=== PATIENT | female | born 1950 ===

== ENCOUNTER 2017-06-02 08:14 | Day surgery (SDC) | payer MEDICARE, OTHER ==
[~2017-06-02] VITALS: Ht 162.6 cm; Wt 73.5 kg
[~2017-06-02 08:14] MED LIST: CELE100; CLOB.05TO; CONEST.625 PO; METO100ER PO; NEBI10 PO
== END 2017-06-02 11:17 | disposition home or self-care (01) ==
LOC: ORSCSDS 08:14
PROVIDERS: Internal Medicine Gastroenterology
PROC: 0DBM8ZX Excision of Descending Colon, Via Natural or Artificial Opening Endoscopic, Diagnostic (ICD-10-PCS; principal; 2017-06-02 09:45)
PROC: 0DBN8ZX Excision of Sigmoid Colon, Via Natural or Artificial Opening Endoscopic, Diagnostic (ICD-10-PCS; principal; 2017-06-02 09:45)
DX: Z12.11 Encounter for screening for malignant neoplasm of colon (principal); D12.4 Benign neoplasm of descending colon; K63.5 Polyp of colon; K57.30 Diverticulosis of large intestine without perforation or abscess without bleeding; I10 Essential (primary) hypertension; Z79.899 Other long term (current) drug therapy
CPT/HCPCS: 88305; J3010

== ENCOUNTER 2018-01-28 21:24 | Emergency (ER) | payer MEDICARE, OTHER ==
[~2018-01-28] VITALS: Ht 162.6 cm; Wt 65.8 kg
[2018-01-28 21:39] LABS: BASOPHILS ABSOLUTE AUTO 0.08 K/mm3 (0.00-0.23); BASOPHILS PERCENT AUTO 1 % (0-2); EOSINOPHILS ABSOLUTE AUTO 0.79 K/mm3 (0.00-0.68); EOSINOPHILS PERCENT AUTO 8 % (0-6); Hemoglobin 13.1 g/dL (11.5-16.0); IMMATURE GRAN ABSOLUTE AUTO 0.03 K/mm3 (0.00-0.10); IMMATURE GRAN PERCENT AUTO 0 % (0-1); LYMPHOCYTES ABSOLUTE AUTO 2.87 K/mm3 (0.84-5.20); LYMPHOCYTES PERCENT AUTO 29 % (21-46); MONOCYTES ABSOLUTE AUTO 0.87 K/mm3 (0.16-1.47); MONOCYTES PERCENT AUTO 9 % (4-13); Mean Corpuscular HGB 29.4 pg (26.0-34.0); Mean Corpuscular HGB Conc 33.6 g/dL (31.5-36.5); Mean Corpuscular Volume 88 fL (80-100); Mean Platelet Volume 10.6 fL (9.1-12.4); NEUTROPHILS ABSOLUTE AUTO 5.32 K/mm3 (1.96-9.15); NEUTROPHILS PERCENT AUTO 54 % (41-73); Platelet Count 248 K/mm3 (150-400); RDW Standard Deviation 41.7 fL (35.1-46.3); Red Blood Cell Count 4.45 M/mm3 (3.80-5.20); White Blood Cell Count 9.96 K/mm3 (4.00-11.30)
[2018-01-28] MEDS ORDERED: NAPR500 PO (21:50)
[2018-01-28 22:02] LABS: Alanine Aminotransfer (ALT/SGP 25 U/L (12-78); Albumin, Blood 4.2 g/dL (3.4-5.0); Albumin/Globulin Ratio 1.2 (0.8-1.8); Alk Phos 58 U/L (50-136); Anion Gap 11 mmol/L (6-16); Aspartate Aminotrans (AST/SGOT 21 U/L (12-37); Bilirubin, Total 0.4 mg/dL (0.1-1.0); Blood Urea Nitrogen 22 mg/dL (8-24); Bun/Creatinine Ratio 32.2 (12.0-20.0); CO2, Blood 23 mmol/L (21-32); Calcium, Blood 9.4 mg/dL (8.5-10.1); Chloride, Blood 107 mmol/L (98-108); Creatinine, Blood 0.68 mg/dL (0.40-1.00); Globulin, Blood 3.4 g/dL (2.2-4.0); Glomerular Filtration Rate >60 (60-); Glucose, Blood 104 mg/dL (70-99); Sodium, Blood 141 mmol/L (136-145); Total Protein, Blood 7.6 g/dL (6.4-8.2)
== END 2018-01-28 22:26 | disposition home or self-care (01) ==
LOC: ER 21:24
PROVIDERS: Emergency Medicine
DX: R10.11 Right upper quadrant pain (principal); I10 Essential (primary) hypertension; Z79.899 Other long term (current) drug therapy
CPT/HCPCS: 36415; 76705; 80053; 83690; 85025; 96360; 99284-25; J2405; J7030

== ENCOUNTER 2022-03-01 04:40 | Inpatient (IN) | payer MEDICARE, OTHER ==
[~2022-03-01] VITALS: Ht 160 cm; Wt 63.5 kg
[~2022-03-01 04:40] MED LIST changes: +NAPR500 PO
[2022-03-01] MEDS ORDERED: ALEN70 PO (04:53)
[2022-03-01] MEDS ORDERED: NAPR220 PO (04:53)
[2022-03-01 05:07] LABS: BASOPHILS ABSOLUTE AUTO 0.06 K/mm3 (0.00-0.23); BASOPHILS PERCENT AUTO 1 % (0-2); EOSINOPHILS ABSOLUTE AUTO 0.44 K/mm3 (0.00-0.68); EOSINOPHILS PERCENT AUTO 5 % (0-6); Hematocrit 41.3 % (33.0-51.0); Hemoglobin 13.9 g/dL (11.5-16.0); IMMATURE GRAN ABSOLUTE AUTO 0.03 K/mm3 (0.00-0.10); IMMATURE GRAN PERCENT AUTO 0 % (0-1); LYMPHOCYTES ABSOLUTE AUTO 1.56 K/mm3 (0.84-5.20); LYMPHOCYTES PERCENT AUTO 16 % (21-46); MONOCYTES ABSOLUTE AUTO 0.64 K/mm3 (0.16-1.47); MONOCYTES PERCENT AUTO 7 % (4-13); Mean Corpuscular HGB 30.3 pg (26.0-34.0); Mean Corpuscular HGB Conc 33.7 g/dL (31.5-36.5); Mean Corpuscular Volume 90 fL (80-100); Mean Platelet Volume 10.3 fL (9.1-12.4); NEUTROPHILS PERCENT AUTO 72 % (41-73); Platelet Count 283 K/mm3 (150-400); RDW Coefficient Variation 12.5 % (11.7-14.2); RDW Standard Deviation 41.3 fL (35.1-46.3); Red Blood Cell Count 4.59 M/mm3 (3.80-5.20); White Blood Cell Count 9.83 K/mm3 (4.00-11.30)
[2022-03-01 05:19] LABS: Albumin/Globulin Ratio 1.1 (0.8-1.8); Bilirubin, Total 0.4 mg/dL (0.1-1.0); Bun/Creatinine Ratio 20.2 (12.0-20.0); Calcium, Blood 8.9 mg/dL (8.5-10.1); Creatinine, Blood 0.59 mg/dL (0.40-1.00); Globulin, Blood 3.6 g/dL (2.2-4.0); Magnesium, Blood 1.8 mg/dL (1.6-2.4); Potassium, Blood 3.9 mmol/L (3.5-5.5); Total Protein, Blood 7.6 g/dL (6.4-8.2)
[2022-03-01 07:15] LABS: Source, Urine Clean Catch
[2022-03-01 07:17] LABS: Appearance, Urine Clear (Clear); Bilirubin, Urine Neg (Neg); Blood, Urine 1+ (Neg); Color, Urine Yellow (P-Yellow); Glucose Qualitative, Urine Neg (Neg); Ketones, Urine Neg (Neg); Leukocyte Esterase, Urine Neg (Neg); Nitrite, Urine Neg (Neg); Protein, Urine 1+ (Neg); Specific Gravity, Urine 1.005 (1.003-1.022); Urobilinogen, Urine NORM (Normal)
[2022-03-01 07:28] LABS: Bacteria Not Seen /hpf; Hyaline Casts 0-2 /lpf (0-2); Red Blood Cells, Urine 0-2 /hpf (0-2); Squamous Epithelial Cells Rare /hpf (Few); White Blood Cells, Urine 0-2 /hpf (0-5)
--- NOTE | 2022-03-01 09:17 | NUR ---
PT ARRIVED TO UNIT VIA GURN FROM EMERGENCY ROOM. PT ABLE TO TRANSFER EASILY FROM ER GURN TO DAY SURGERY GURN. VSS. Patient up to Ambulate independently. Gait steady. History, Chart, Medications and Allergies reviewed before start of procedure.
--- NOTE | 2022-03-01 10:59 | NUR ---
03/01/22 1059 Red [facility] 3G [place] STARTED AT 1030 INTRAOPERATIVELY
--- NOTE | 2022-03-01 13:00 | NUR ---
PATIENT CAME FROM PACU TODAY AT 1300. POD 0 RIGHT CARO COLECTOMY PATIENT IS A&OX4 BUT IS DROWSY. SHE IS EASILY AWAKENED WITH TOUCH AND BY SAYING HER NAME. PATIENT REPORTS 10/10 PAIN FROM HER SHOULDERS. DR. URRUTIA IS AWARE AND REPORTED "THAT PAIN WILL BE THERE FOR TWO TO THREE DAYS DUE TO HER DIAPHRAGM BEING DISPLACED". SHE DOES HAVE AN EPIDURAL WITH PROOF COIN COLLECTOR BOLUS DOSE INCLUDED. SHE HAS NUMBNESS FROM THE TOP OF HER ABD AND DOWN THOUGH CAN MOVE HER FINGERS AND TOES WHEN ASKED. EPIDURAL SITE IS C/D/I. SHE HAS A JOSE MIDLINE ON HER ABD THAT HAS A SMALL AMOUNT OF BLOOD THAT IS OUTLINED AND HASN'T CHANGED SINCE IT WAS PLACED PER PACU NURSE BEDSIDE REPORT. PATIENT IS LAYING IN BED. CALL LIGHT WITHIN REACH.
--- NOTE | 2022-03-01 15:16 | NUR ---
SHIFT SUMMARY: POD 0 RIGHT CARO COLECTOMY NO SIGNIFICANT CHANGES SINCE POST OP. SHE IS INTERMITTENTLY SLEEPING BUT IS EASILY AROUSABLE WITH TOUCH/SAYING HER NAME. PATIENT HAS EPIDURAL WITH HAIR SPINNING MACHINE OPERATOR BOLUS BUTTON FOR HER PAIN. SHE REPORTS NUMBNESS FROM HER UMBILICUS DOWN BUT IS ABLE TO MOVE HER FINGERS AND TOES. ABD HAS A MIDLINE JOSE WITH NO NEW DRAINAGE NOTED WITH SUCTION ACHIEVED WITH THE GREEN BLINKING LIGHT FROM MACHINE. ABD IS TENDER TO TOUCH/PALPATATE. SHE IS TOLERATING SMALL SIPS OF FLUIDS. PATIENT IS LAYING IN BED. CALL LIGHT WITHIN REACH.
--- NOTE | 2022-03-01 18:05 | NUR ---
Pt. is awake and welcomes my visit. Pt. is unsettled about the tenderness from her surgery. Listen carefully, and establish rapport. Pt. displays evidence of awareness and engagement. Prayed with Pt. Pt. verbalized gratitude for the spiritual care visit.
--- NOTE | 2022-03-01 23:08 | NUR ---
UPDATE/PHYSICIAN NOTIFIED PT CONT TO REPORT SEVERE PAIN IN SHOULDERS AND ABD. W/O RELIEF FROM TORADOL. DR. NARVAEZ NOTIFIED. PHYSICIAN INSTRUCTED TO GIVE IV MORPHINE W/EPIDURAL CLEAN RICE BROKER. PT NOW RESTING COMFORTABLY. VSS.
[2022-03-02 04:49] LABS: BASOPHILS ABSOLUTE AUTO 0.03 K/mm3 (0.00-0.23); BASOPHILS PERCENT AUTO 0 % (0-2); EOSINOPHILS PERCENT AUTO 0 % (0-6); Hematocrit 29.2 % (33.0-51.0); Hemoglobin 10.1 g/dL (11.5-16.0); IMMATURE GRAN ABSOLUTE AUTO 0.05 K/mm3 (0.00-0.10); IMMATURE GRAN PERCENT AUTO 0 % (0-1); LYMPHOCYTES ABSOLUTE AUTO 1.05 K/mm3 (0.84-5.20); LYMPHOCYTES PERCENT AUTO 8 % (21-46); MONOCYTES ABSOLUTE AUTO 1.07 K/mm3 (0.16-1.47); MONOCYTES PERCENT AUTO 8 % (4-13); Mean Corpuscular HGB 31.1 pg (26.0-34.0); Mean Corpuscular HGB Conc 34.6 g/dL (31.5-36.5); Mean Corpuscular Volume 90 fL (80-100); Mean Platelet Volume 10.5 fL (9.1-12.4); NEUTROPHILS PERCENT AUTO 84 % (41-73); Platelet Count 259 K/mm3 (150-400); RDW Coefficient Variation 12.4 % (11.7-14.2); RDW Standard Deviation 41.1 fL (35.1-46.3); Red Blood Cell Count 3.25 M/mm3 (3.80-5.20)
[2022-03-02 05:01] LABS: Calcium, Blood 7.4 mg/dL (8.5-10.1); Creatinine, Blood 0.72 mg/dL (0.40-1.00); Potassium, Blood 4.2 mmol/L (3.5-5.5)
--- NOTE | 2022-03-02 06:19 | NUR ---
SHIFT SUMMARY PT ALERT AND ORIENTED X 4. HR STABLE. BP STABLE,MAP ABOVE 65. PT REPORTS SEVERE PAIN IN SHOULDERS AND ABD, PHYSICIAN NOTIFIED. ORDERS TO GIVE PRN MORPHINE FOR PAIN. EPIDURAL SECURITY CHECKER,SEE EMAR. PHYSICIAN INSTRUCTED TO ENCOURAGE PT TO USE SECURITY CHECKER NEEDED. WOUND VAC TO ABD, GREEN LIGHT SHOWING WOUND VAC WORKING AT THIS TIME. JOSE DRESSING HAS OUTLINE IN BLACK INK OF DAYSDEFT DRAINAGE 03/01. NO FURTHER DRAINAGE ON DRESSING. ALMONTE DRAINING TO GRAVITY. CALL LIGHT WITHIN REACH. PT RESTING AT THIS TIME. Q1 VITAL SIGNS DONE. WILL CONT TO MONITOR UNTIL REPORT GIVEN TO DAYSHIFT RN.
--- NOTE | 2022-03-02 07:05 | NUR ---
RECVD REPORT FROM PREVIOUS SHIFT RN. PT SLEEPING IN BED, BED IN LOWEST POSITION, BED RAILS UP X 2, CONT BIOXX SHOWING HR 89, SPO2 91% 2L NC. CALL LIGHT WITHIN REACH.
--- NOTE | 2022-03-02 08:00 | NUR ---
DR BRUNO MAIN
--- NOTE | 2022-03-02 08:45 | NUR ---
DR BILLY MIAN
--- NOTE | 2022-03-02 09:45 | NUR ---
DR BRICE MAIN
--- NOTE | 2022-03-02 15:12 | NUR ---
THIS RN STARTED NEW IV IN R HAND 22 GAUGE FOR RN MARIA LUZ
[2022-03-03 03:40] LABS: BASOPHILS ABSOLUTE AUTO 0.04 K/mm3 (0.00-0.23); BASOPHILS PERCENT AUTO 0 % (0-2); EOSINOPHILS ABSOLUTE AUTO 0.12 K/mm3 (0.00-0.68); EOSINOPHILS PERCENT AUTO 1 % (0-6); Hemoglobin 7.4 g/dL (11.5-16.0); IMMATURE GRAN ABSOLUTE AUTO 0.09 K/mm3 (0.00-0.10); IMMATURE GRAN PERCENT AUTO 1 % (0-1); LYMPHOCYTES ABSOLUTE AUTO 1.47 K/mm3 (0.84-5.20); LYMPHOCYTES PERCENT AUTO 12 % (21-46); MONOCYTES ABSOLUTE AUTO 0.71 K/mm3 (0.16-1.47); MONOCYTES PERCENT AUTO 6 % (4-13); Mean Corpuscular HGB 30.7 pg (26.0-34.0); Mean Corpuscular HGB Conc 33.6 g/dL (31.5-36.5); Mean Corpuscular Volume 91 fL (80-100); Mean Platelet Volume 10.4 fL (9.1-12.4); NEUTROPHILS PERCENT AUTO 80 % (41-73); Platelet Count 196 K/mm3 (150-400); RDW Coefficient Variation 12.5 % (11.7-14.2); RDW Standard Deviation 41.9 fL (35.1-46.3); Red Blood Cell Count 2.41 M/mm3 (3.80-5.20); White Blood Cell Count 11.83 K/mm3 (4.00-11.30)
[2022-03-03 04:00] LABS: Bun/Creatinine Ratio 17.4 (12.0-20.0); Calcium, Blood 7.6 mg/dL (8.5-10.1); Creatinine, Blood 0.86 mg/dL (0.40-1.00); Magnesium, Blood 1.9 mg/dL (1.6-2.4); Potassium, Blood 3.8 mmol/L (3.5-5.5)
--- NOTE | 2022-03-03 04:29 | NUR ---
SHIFT SUMMARY POD#2 CARO COLECTOMY W/EPIDURAL PLACEMENT. PATIENT DENIES NT, REPORTS FULL SENSATION THROUGHOUT. PICCO DRESSING TO MIDLINE INCISION, WITH DRIED DRAINAGE, OUTLINED WITH INK. ABD MILDLY DISTENDED, NONTENDER REPORTS NO FLATUS. TOLERATES PO SIPS OF CLEARS. DENIES N/V. PATIENT IS NOW ON 3 L NC, SATS AT 93%. ENCOURAGED DEEP BREATHING, EDUCATED ON INCENTIVE SPIROMETER. ALMONTE PATENT DRAINING YELLOW CLEAR URINE. STAT LOCK IN PLACE. RESTING COMFORTABLY AT THIS TIME, CALL LIGHT IN REACH.
[2022-03-03 08:55] LABS: Hemoglobin 7.5 g/dL (11.5-16.0)
[2022-03-03 12:01] LABS: Hematocrit 22.2 % (33.0-51.0); Hemoglobin 7.4 g/dL (11.5-16.0)
--- NOTE | 2022-03-03 15:59 | NUR ---
SHIFT SUMMARY: POD 2 RIGHT CARO COLECTOMY NO SIGNIFICANT CHANGES. PATIENT IS A&OX4. VS ARE WNL AND IS ON 2L NC. PAIN IS MANAGED WITH HER EPIDURAL WITH ASSISTANT PRODUCTION MANAGER FUNCTION. DENIES NUMBNESS OR TINGLING. PATIENT REPOSITIONS HERSELF IN BED INDEP. SHE IS A SBA TO A CHAIR. JOSE ON MIDLINE OF ABD STILL HAS OLD BROWN BLOOD WITH NO NEW CHANGES. GREEN LIGHT IS BLINKING ON MACHINE INDICATING THERE IS STILL SUCTION BEING APPLIED. SHE IS TOLERATING HER FULL LIQUID DIET. SHE CALLS APPROPRIATELY. CALL LIGHT WITHIN REACH. ALMONTE IS DRAINING LIGHT YELLOW URINE WITH NO KINKS IN TUBING. THE PLAN IS TO POSSIBLY DISCONTINUE THE EPIDURAL TOMORROW AND HER ALMONTE. IF THAT HAPPENS THEN THE GOAL WILL BE TO MANAGE HER PAIN AND INCREASE AMBULATION.
[2022-03-03 17:38] LABS: Hematocrit 23.1 % (33.0-51.0); Hemoglobin 7.8 g/dL (11.5-16.0)
[2022-03-03 23:35] LABS: Hematocrit 22.5 % (33.0-51.0); Hemoglobin 7.8 g/dL (11.5-16.0)
--- NOTE | 2022-03-04 05:20 | NUR ---
SHIFT SUMMARY PT A&OX4, PLEASANT AND COOPERATIVE. PAIN MANAGED WITH EPIDURAL. VVS, CURRENTLY ON 2L NC, BIOX AT BEDSIDE. PT STATES FULL SENSATION, NO NUMBNESS/TINGLING. ABLE TO TRANSFER TO CHAIR WITH SBA. JOSE HAS OLD DRIED BLOOD THAT HAS BEEN OUTLINED, NO INCREASE, GREEN LIGHT ON. PT HAD SOME NAUSEA AROUND 0430 THAT RESULTED IN VOMITING, ZOFRAN GIVEN, SHE FEELS BETTER NOW. ALMONTE IN PLACE AND DRAINING YELLOW/CLEAR. CALLS APPROPRIATELY, CALL LIGHT WITHIN REACH
[2022-03-04 06:03] LABS: BASOPHILS ABSOLUTE AUTO 0.04 K/mm3 (0.00-0.23); BASOPHILS PERCENT AUTO 0 % (0-2); EOSINOPHILS PERCENT AUTO 3 % (0-6); Hematocrit 24.6 % (33.0-51.0); Hemoglobin 8.4 g/dL (11.5-16.0); IMMATURE GRAN ABSOLUTE AUTO 0.04 K/mm3 (0.00-0.10); IMMATURE GRAN PERCENT AUTO 0 % (0-1); LYMPHOCYTES ABSOLUTE AUTO 1.04 K/mm3 (0.84-5.20); LYMPHOCYTES PERCENT AUTO 11 % (21-46); MONOCYTES ABSOLUTE AUTO 0.77 K/mm3 (0.16-1.47); MONOCYTES PERCENT AUTO 8 % (4-13); Mean Corpuscular HGB 31.2 pg (26.0-34.0); Mean Corpuscular HGB Conc 34.1 g/dL (31.5-36.5); Mean Corpuscular Volume 91 fL (80-100); Mean Platelet Volume 10.2 fL (9.1-12.4); NEUTROPHILS ABSOLUTE AUTO 7.17 K/mm3 (1.96-9.15); NEUTROPHILS PERCENT AUTO 77 % (41-73); Platelet Count 242 K/mm3 (150-400); RDW Coefficient Variation 12.6 % (11.7-14.2); RDW Standard Deviation 42.1 fL (35.1-46.3); Red Blood Cell Count 2.69 M/mm3 (3.80-5.20); White Blood Cell Count 9.36 K/mm3 (4.00-11.30)
[2022-03-04 06:37] LABS: Albumin, Blood 2.7 g/dL (3.4-5.0); Albumin/Globulin Ratio 0.8 (0.8-1.8); Bilirubin, Total 0.8 mg/dL (0.1-1.0); Bun/Creatinine Ratio 13.1 (12.0-20.0); Calcium, Blood 8.3 mg/dL (8.5-10.1); Creatinine, Blood 0.69 mg/dL (0.40-1.00); Globulin, Blood 3.6 g/dL (2.2-4.0); Magnesium, Blood 1.8 mg/dL (1.6-2.4); Phosphorus, Blood 2.6 mg/dL (2.5-4.9); Potassium, Blood 3.5 mmol/L (3.5-5.5); Total Protein, Blood 6.3 g/dL (6.4-8.2)
--- NOTE | 2022-03-04 07:28 | NUR ---
WASTE WASTED REMAINDER OF EPIDURAL WITH SIENNA CHAMBERS
--- NOTE | 2022-03-04 10:07 | NUR ---
REPORTS NAUSEA IS "BETTER" AFTER REGLAN GIVEN, PT WANTS TO JUST REST FOR NOW, CONT. TO MONITOR FOR ANY CHANGES.
[2022-03-04 11:41] LABS: Hematocrit 25.1 % (33.0-51.0); Hemoglobin 8.7 g/dL (11.5-16.0)
--- NOTE | 2022-03-04 12:35 | NUR ---
PT REPORTS HAVING TOLERABLE RELIEF OF NAUSEA THIS AM AFTER REGLAN GIVEN, CURRENTLY C/O NAUSEA, REQUESTING PHENERGAN, DR. HOWARD NOTIFIED, PHENERGAN ORDERED AND GIVEN, PT REFUSED TO GET ALMONTE CATH REMOVED AT THIS TIME, OK PER DR. CERVANTES, PT STATES WILL TRY TO GET OOB AND REMOVE ALMONTE ONCE NAUSEA IS BETTER, DENIES ANY NEED FOR PAIN MEDS AT THIS TIME, CONT. TO MONITOR FOR ANY CHANGES.
--- NOTE | 2022-03-04 13:33 | NUR ---
REPORTS NAUSEA IS BETTER AFTER PHENERGAN, ENCOURAGED OOB AND TO DC ALMONTE BUT PT JUST WANTS TO SLEEP FOR NOW.
--- NOTE | 2022-03-04 17:33 | NUR ---
SUMMARY PT HAD EPIDURAL DC'D THIS AM BY DR. NARVAEZ, HAS HAD NAUSEA MOST OF THE DAY AND VOMITTED X2 THIS AM, STATES REGLAN AND PHENERGAN HAS BEEN HELPING WITH NAUSEA, SLEPT MOST OF THE DAY, PT DIDN'T FEEL WELL MOST OF THE DAY DUE TO NAUSEA AND STAYED IN BED, OOB AFTER LUNCH BUT REFUSED TO HAVE ALMONTE CATH REMOVED TODAY, OK'D PER DR. CERVANTES, PHYS [place] SAW PT TODAY, REPORT MINIMAL PAIN, PT ONLY HAD 1 DOSE OF TORADOL FOR PAIN, DENIES PASSING FLATUS, UNABLE TO TOLERATE CLEAR LIQUID DIET EXCEPT FOR A FEW SIPS OF WATER, NO OTHER CHANGES THIS SHIFT.
[2022-03-05 05:08] LABS: Hematocrit 27.2 % (33.0-51.0); Hemoglobin 8.9 g/dL (11.5-16.0)
[2022-03-05 05:23] LABS: Bun/Creatinine Ratio 19.9 (12.0-20.0); Calcium, Blood 9.1 mg/dL (8.5-10.1); Creatinine, Blood 0.81 mg/dL (0.40-1.00); Potassium, Blood 4.1 mmol/L (3.5-5.5)
--- NOTE | 2022-03-05 10:41 | NUR ---
DENIES ANY NAUSEA TODAY, REPORTS FEELING "BETTER" ALMONTE CATH STACEY'D THIS AM, ENCOURAGED OOB, ATE 20% OF FULL LIQUID BREAKFAST.
--- NOTE | 2022-03-05 18:16 | NUR ---
SHIFT SUMMARY TOOK OVER CARE APPROXIMATELY 1400. PT A&OX4, VSS/RA, VANE PO - LOW PO INTAKE, AMB INDEPENDENTLY TO [facility], PAIN MANAGED WITH TYLENOL. VOIDING WELL, PT REP BMS TODAY. WILL REPORT TO ONCOMING NOC RN.
--- NOTE | 2022-03-06 04:32 | NUR ---
SHIFT SUMMARY A/O X4- IND IN ROOM. VITAL SIGNS STABLE. VOIDING WELL AND TOLERATED PO INTAKE. PASSING FLATUS AND STOOL. PAIN MANAGED W/ PO PAIN MEDICATION. WILL CONTINUE TO MONITOR AND REPORT TO ONCOMING RN.
[2022-03-06] MEDS ORDERED: ACET325 PO (11:16)
[2022-03-06] MEDS ORDERED: Calcium Carbon500 MG PO (11:17)
--- NOTE | 2022-03-06 12:00 | NUR ---
Pt. is awake in bed and welcomes my visit. Pt. is a little unsettled about whether she is ready for D/C. Listen empathetically with a calming presence. Re-esablish rapport and [place] with the pt. Pt. displays evidence of both concern and humor. Nurse Kate brought lunch. Pt. verblaized gratitude for the spiritual care visit.
--- NOTE | 2022-03-06 15:22 | NUR ---
DISCHARGE PT A&OX4, SPOUSE @ BEDSIDE FOR DC DIRECTION. PT PROVIDED W/ WRITTEN AND VERBAL DIRECTION, VERBALIZED UNDERSTANDING. TOLERATING PO INTAKE, PAIN MEDICATION SCRIPT PROVIDED TO SPOUSE. SPOUSE PROVIDING TRANSPORT. VSS. ESCOURTED OUT VIA WC.
== END 2022-03-06 14:50 | disposition home or self-care (01) | DRG 330 ==
LOC: ER 04:40 → SURS 04:41
PROVIDERS: Family Medicine; Family Medicine Adult Medicine; Student in an Organized Health Care Education/Training Program; Surgery; ADMIT Internal Medicine
PROC: 0DTF0ZZ Resection of Right Large Intestine, Open Approach (ICD-10-PCS; principal; 2022-03-01 10:00)
DX: K56.2 Volvulus (principal); K91.89 Other postprocedural complications and disorders of digestive system; I10 Essential (primary) hypertension; M19.90 Unspecified osteoarthritis, unspecified site; M85.80 Other specified disorders of bone density and structure, unspecified site; M81.0 Age-related osteoporosis without current pathological fracture; K56.7 Ileus, unspecified; K59.00 Constipation, unspecified; K91.0 Vomiting following gastrointestinal surgery; D64.9 Anemia, unspecified; Z90.710 Acquired absence of both cervix and uterus; Z98.891 History of uterine scar from previous surgery; Z98.890 Other specified postprocedural states; Z79.899 Other long term (current) drug therapy; Y83.6 Removal of other organ (partial) (total) as the cause of abnormal reaction of the patient, or of later complication, without mention of misadventure at the time of the procedure
CPT/HCPCS: 36415; 71045; 74177; 80048; 80053; 81001; 83605; 83690; 83735; 84100; 85014; 85018; 85025; 88307; 93005; 93010; 94762; 96374-59; 96375; 96376; 97116; 97162; 97530; 99285-25; A9270; G0378; J0360; J1100; J1885; J2250; J2270; J2405; J2550; J2704; J2765; J3010; J3360; J7030; J7060; Q9967